=== PATIENT | female | born 2000 | race African-American/Black ===

== ENCOUNTER 2018-08-22 13:57 | Emergency (ER) | payer OTHER ==
[2018-08-22 14:39] LABS: Bilirubin Small (Negative); Blood, Urine Negative (Negative); Clarity CLEAR (Clear); Glucose, Urine (Dipstick) Negative (Negative); Leukocyte Moderate (Negative); Nitrite Negative (Negative); Protein, Urine (Dipstick) Trace mg/dL (Neg-Trace); Specific Gravity, Urine 1.031 (1.002-1.036)
[2018-08-22 14:43] LABS: Pregnancy Test - Urine (BHCG) Negative (Negative); Pregu Control Background? CLEAR/WHITE (CLR/WHITE); Pregu Control Bar Appear? YES (CONTROL BAR); Specific Gravity 1.031 (1.002-1.036)
[2018-08-22 14:46] LABS: Pathc Cast-AUWi Flag 4.21 (0-2.49)
[2018-08-22 14:48] LABS: Bacteria/HPF Rare-Few HPF (None Seen); Hyaline Casts/LPF 0-3 HYALINE CAST LPF (0-3 Hyaline); Manual Microscopic Reviewed? No Path Casts Seen; Renal Epithelial None Seen HPF (0-3); Transitional Epithelial NONE SEEN HPF (0-3)
[2018-08-22 15:21] LABS: #Basophils 0.1 thou/uL (0.0-0.2); #Lymphocytes 1.1 thou/uL (1.20-3.40); #Monocytes 0.4 thou/uL (0.11-0.59); %Basophils 0.8 % (0.0-1.0); %Eosinophils 0.3 % (0.0-10.0); %Lymphocytes 14.4 % (28.0-48.0); %Monocytes 5.7 % (0.0-4.0); %Neutrophils 78.8 % (31.0-61.0); Hemoglobin 13.9 g/dL (12.0-16.0); Mean Corpuscular HGB CONC 33.7 g/dL (32.0-36.0); Mean Corpuscular Hemoglobin 28.6 pg (25.0-35.0); Mean Corpuscular Volume 84.9 fL (78.0-98.0); Mean Platelet Volume 7.9 fL (7.4-10.4); Platelet Count 286 thou/uL (130-400); Red Blood Cell (RBC) Count 4.86 mill/uL (4.00-5.20); White Blood Cell (WBC) Count 7.6 thou/uL (4.8-10.8)
[2018-08-22 15:49] LABS: ALT (SGPT) 7 U/L (8-55); AST (SGOT) 17 U/L (5-34); Albumin 4.5 g/dL (3.5-5.0); Alkaline Phosphatase 79 U/L (40-150); Anion Gap 11 mmol/L (10-20); BUN (Urea Nitrogen) 6 mg/dL (7.0-18.7); Bilirubin, Total 0.6 mg/dL (0.2-1.2); Calc. Creatinine Clearance 0 mL/min (70-130); Calcium 10.1 mg/dL (7.8-10.44); Carbon Dioxide 24 mmol/L (22-29); Chloride 108 mmol/L (98-107); Estimated GFR-MDRD Greater than 90; Globulin 3.7 g/dL (2.4-3.5); Glucose 82 mg/dL (70-105); Potassium 3.9 mmol/L (3.5-5.1); Protein, Total 8.2 g/dL (6.0-8.3); Sodium 139 mmol/L (136-145)
--- NOTE | 2018-08-22 17:28 | RAD ---
CHEST ONE VIEW: 08/22/18 HISTORY: Chest pain. COMPARISON: None. FINDINGS: There is low grade dextroscoliosis of the lumbar spine. There is radiopacity projecting over the midl ine lower lumbar spine which may be outside of the patient. Lungs are without focal confluent air space consolidation, pneumothorax, or effusion. IMPRESSION: No acute intrathoracic abnormality. POS: [facility]
== END 2018-08-22 18:42 | disposition home or self-care (01) ==
LOC: ERS 13:57
DX: R07.89 Other chest pain (principal); R51 Headache
CPT/HCPCS: 36415; 71045; 80053; 81003; 81015; 81025; 85025; 87086; 93005

== ENCOUNTER 2019-01-28 15:19 | Outpatient (CLI) | payer MEDICAID ==
--- NOTE | 2019-01-28 16:09 | ULT ---
Pelvic sonogram transabdominal and transvaginal imaging with duplex evaluation HISTORY: Left pelvic pain. FINDINGS: Urinary bladder has a normal appearance. Uterus has a heterogeneous echotexture and is 7.7 cm. Endometrium is 0.8 cm. No free fluid. Right ovary is 3.3 cm and left is 3.2 cm. Each contains follicles and demonstrates good color and spe ctral Doppler flow. IMPRESSION: Normal pelvic sonogram.
== END 2019-01-28 15:20 | disposition home or self-care (01) ==
LOC: BICULT 15:19
PROVIDERS: ATTEND Advanced Practice Midwife
DX: R10.2 Pelvic and perineal pain (principal)
CPT/HCPCS: 76856